=== PATIENT | male | born 1980 | race Caucasian/White ===

== ENCOUNTER 2017-10-14 12:18 | Emergency (ER) | payer BC ==
--- NOTE | 2017-10-14 12:41 | ERNOTE ---
Back Pain ER HPI Date of Service: 10/14/17 Time Seen by Provider: 10/14/17 12:32 Source: patient Exam Limitations: no limitations Immunizations: IMMUNIZATION HX Immunizations Up to Date Yes History of Influenza Vaccine No Hx Pneumococcal Vaccination No Allergies/Adverse Reactions: Allergies No Known Allergies Allergy (Verified 10/14/17 12:32) Home Medications: HOME MEDICATIONS Cyclobenzaprine HCl [Flexeril] 10 mg PO TID PRN #30 tab 10/14/17 [Last Taken Unknown] Naproxen [Naprosyn] 500 mg PO BID PRN #60 tab 10/14/17 [Last Taken Unknown] Narrative: Pt. comes in with c/o back pain for 3-4weeks after he felt a muscle pull when he was lifting weights at the gym. Pt. states that the past two days the pain has worsened and is radiating down his R buttock and thigh. Pt. denies any SOB , CP, NVD, numbness, tingling, alleviating factors despite taking tylenol and Ibuprofen and states taht moement exacerbates the pain. Review of Systems - Review of Systems Constitutional: Present: no symptoms reported. Absent: recent illness, fever, chills, weakness, fatigue, malaise EYE: Present: no symptoms reported ENT: Present: no symptoms reported Respiratory: Present: no symptoms reported. Absent: shortness of breath, cough , wheezing Cardiology: Present: no symptoms reported. Absent: chest pain, palpitations, edema Gastrointestinal/Abdominal: Present: no symptoms reported. Absent: nausea, vomiting, diarrhea Musculoskeletal: Present: back pain, muscle pain - R buttock. Absent: neck pain , joint pain Skin: Present: no symptoms reported. Absent: rash, dryness, lesions, change in color Neurological: Present: no symptoms reported. Absent: headache, dizziness/light- headedness, numbness, tingling All Other Systems: All systems neg except as marked - Patient's Past Medical History Patient History - Medical: No pertinent hx Patient History - Cardiac/Respiratory: No pertinent hx Patient History - Cancer: No Hx of Cancer Patient History - Other: None - Social History Living Situations: home Abuse History: No History of abuse Psych History: No pertinent hx Smoking Status: Never smoker Have you smoked in the past 12 months: No Do you dip or chew tobacco: No Alcohol Use: none Drug Use: none - Immunizations Immunizations Up to Date: Yes Hx Pneumococcal Vaccination: No History of Influenza Vaccine: No Physical Exam - Physical Exam General Appearance: Present: wd/wn, alert, no apparent distress Head Exam: Present: normal inspection, no evidence of injury Eye Exam: Normal inspection: bilateral, PERRL: bilateral, EOMI: bilateral Ears, Nose, Throat: Present: normal ENT inspection, normal pharynx Neck: Present: normal inspection, nontender. Absent: lymphadenopathy (R), lymphadenopathy (L) Respiratory: Present: no respiratory distress, normal breath sounds, no accessory muscle use, chest nontender, lungs clear Cardiovascular/Chest: Present: regular rate, rhythm, no murmur, normal peripheral pulses Gastrointestinal/Abdominal: Present: normal bowel sounds, nontender, nondistended, soft, no organomegaly Back Exam: Present: no CVA tenderness, decreased range of motion, muscle spasm - R buttock and paraspinous Extremity Exam: Present: normal inspection, non-tender, normal range of motion, no edema Neurological Exam: Present: alert, oriented, normal mood/affect, no motor/ sensory deficits, dowel pointer II-XII nml as tested, normal cerebellar test Skin Exam: Present: normal color, warm/dry. Absent: pallor, skin rash ED Progress - Vital Signs Patient's Vital Signs:: I have reviewed the patient's vital signs. Vital Signs: Vital Signs 10/14/17 12:28 Temperature 35.9 C L Pulse Rate 64 Respiratory 18 Rate Blood Pressure 135/68 O2 Sat by Pulse 95 Oximetry - X-Ray X-Ray #1 X-Ray: lumbosacral Interpretation: Reviewed by me X-ray Comments: no acute osseous abnormality - Progress/Reassessment Chief Complaint: Back Pain Departure Clinical Impression: Lumbar paraspinal muscle spasm - Departure Disposition: Home self-care Condition: Good Instructions: Low Back Sprain With [facility]hab[facility] Additional Instructions: Please follow up with primary provider in 2-3 days.May do stretching but no lifting over 5 lbs in 2 weeks. Referrals: Giovana Leung DO [Primary Care Provider] - Prescriptions: Cyclobenzaprine HCl [Flexeril] 10 mg PO TID PRN #30 tab PRN Reason: MUSCLE SPASMS Naproxen [Naprosyn] 500 mg PO BID PRN #60 tab PRN Reason: Pain
[2017-10-14] MEDS ORDERED: ORPHENADRINE CITRATE 30 MG/ML VIAL IM ONE (13:08)
[2017-10-14] MEDS ORDERED: KETOROLAC TROMETHAMINE 60 MG/2 ML VIAL IM ONE ×2 (13:08→13:11)
[2017-10-14] MEDS ORDERED: ORPHENADRINE CITRATE 30 MG/ML VIAL ONE (13:11)
[2017-10-14] MEDS ORDERED: MORPHINE SULFATE 4 MG/ML SYRG ONE (16:50)
[2017-10-14 20:41] VITALS: BP 126/72
== END 2017-10-14 14:11 | disposition home or self-care (01) ==
LOC: ER 12:18
DX: M62.830 Muscle spasm of back (principal)